=== PATIENT | female | born 1990 | race African-American/Black ===

== ENCOUNTER 2018-12-28 14:21 | Outpatient (CLI) | payer BC ==
--- NOTE | 2018-12-28 16:22 | MRI ---
MRI BRAIN WITH AND WITHOUT CONTRAST: Date: 12/28/18 Multiplanar, multisequential imaging of brain obtained. Postcontrast images obtained after administer ing IV MultiHance. INDICATION: Headache. FINDINGS: The ventricles have normal size and position. Cavum septum pellucidum is incidentally noted. No evidence of restricted diffusion. No evidence of mass or edema. No white matter abnormality. No ab normal enhancement. Dural venous sinuses appear patent. Cerebral arteries show expected flow-voids. Paranasal sinuses and mastoids appear clear. IMPRESSION: Unremarkable MRI brain. POS: [facility]
== END 2018-12-28 14:22 | disposition home or self-care (01) ==
LOC: SCSMRI 14:21
PROVIDERS: ATTEND Psychiatry & Neurology Neurology
DX: G43.109 Migraine with aura, not intractable, without status migrainosus (principal)
CPT/HCPCS: 70553

== ENCOUNTER 2021-04-16 14:21 | Emergency (ER) | payer BC ==
[2021-04-16 15:02] LABS: #Basophils 0.1 thou/uL (0.0-0.2); #Eosinphils 0.1 thou/uL (0.0-0.7); #Lymphocytes 2.2 thou/uL (1.20-3.40); #Monocytes 0.7 thou/uL (0.11-0.59); #Neutrophils 3.5 thou/uL (1.40-6.50); %Basophils 1.1 % (0.0-1.0); %Eosinophils 1.9 % (0.0-10.0); %Monocytes 10.1 % (0.0-10.0); %Neutrophils 53.9 % (42.0-75.0); Hemoglobin 13.2 g/dL (12.0-16.0); Mean Corpuscular HGB CONC 32.8 g/dL (32.0-36.0); Mean Corpuscular Hemoglobin 23.2 pg (27.0-31.0); Mean Corpuscular Volume 70.9 fL (78.0-98.0); Mean Platelet Volume 9.2 fL (7.4-10.4); Platelet Count 247 thou/uL (130-400); RBC Distribution Width 15.1 % (11.5-14.5); Red Blood Cell (RBC) Count 5.69 mill/uL (4.20-5.40); White Blood Cell (WBC) Count 6.5 thou/uL (4.8-10.8)
[2021-04-16 15:23] LABS: ALT (SGPT) 50 U/L (8-55); AST (SGOT) 31 U/L (5-34); Albumin 4.3 g/dL (3.5-5.0); Alkaline Phosphatase 98 U/L (40-110); Anion Gap 15 mmol/L (10-20); BUN (Urea Nitrogen) 5 mg/dL (7.0-18.7); Bilirubin, Total 0.4 mg/dL (0.2-1.2); Calc. Creatinine Clearance 0 mL/min (70-130); Calcium 9.8 mg/dL (7.8-10.44); Carbon Dioxide 25 mmol/L (22-29); Chloride 102 mmol/L (98-107); Globulin 3.6 g/dL (2.4-3.5); Glucose 113 mg/dL (70-105); MDiff Complete? YES; Microcytosis SLIGHT = 6-15 cells (100X) (0-5/hpf); Platelet Morphology Comment Appears Adequate; Potassium 4.1 mmol/L (3.5-5.1); Protein, Total 7.9 g/dL (6.0-8.3); Sodium 138 mmol/L (136-145); Target Cells SLIGHT = 2-5 cells (100X) (0-1/hpf); Tear Drops SLIGHT = 2-5 cells (100X) (0-1/hpf)
[2021-04-16] MEDS ORDERED: Ketorolac Tromethamine 30 MG/ML VIAL ONE (18:22)
[2021-04-16 18:37] LABS: BHCG - Serum Negative (NEGATIVE); Pregs Control Background? CLEAR/WHITE (CLR/WHITE); Pregs Control Bar Appear? YES (CONTROL BAR)
[2021-04-16 18:56] LABS: Acetaminophen Less than 6.0 mcg/mL (10.0-30.0); Alcohol Less than 10 mg/dL (Less than 10); Salicylate Less than 8.0 mg/dL (15.0-30.0)
[2021-04-16 19:04] LABS: Thyroid Stimulating Hormone 1.2474 uIU/mL (0.35-4.94)
== END 2021-04-16 20:37 | disposition home or self-care (01) ==
LOC: ERS 14:21
DX: R07.89 Other chest pain (principal); D64.9 Anemia, unspecified
CPT/HCPCS: 36415; 71045; 80053; 80307; 84443; 84484; 84703; 85025; 85379; 93005; 96374; J1885